=== PATIENT | male | born 1950 | race Caucasian/White ===

== ENCOUNTER 2019-10-17 14:28 | Inpatient (IN) | payer MEDICARE, OTHER ==
[~2019-10-17] VITALS: Ht 172.7 cm; Wt 60.5 kg
[~2019-10-17 14:28] MED LIST: CHOL10002 PO; FOLI-43 PO; FURO40TA4 PO; ISOS30TA6 PO; LACT10SO57 PO; PANT40TA4 PO; POTA10TA19 PO; SPIR25TA5 PO; THI100T PO; VIT1CAPS46 PO
[2019-10-17 15:21] LABS: BASOPHILS # (AUTO) 0.1 X10'3 (0-0.2); BASOPHILS % (AUTO) 1.1 % (0-1); EOSINOPHILS # (AUTO) 0.2 X10'3 (0-0.9); EOSINOPHILS % (AUTO) 4.9 % (0-6); HEMATOCRIT 30.4 % (42.0-52.0); HEMOGLOBIN 10.3 g/dl (14.0-17.9); LYMPHOCYTES # (AUTO) 1.4 X10'3 (1.1-4.8); LYMPHOCYTES % (AUTO) 27.3 % (21-51); MEAN CORPUSCULAR HEMOGLOBIN 34.9 PG (27.0-31.0); MEAN CORPUSCULAR HGB CONC 33.9 g/dL (33.0-36.5); MEAN PLATELET VOLUME 9.1 FL (7.4-10.4); MONOCYTES # (AUTO) 0.8 X10'3 (0-0.9); MONOCYTES % (AUTO) 14.6 % (2-12); NEUTROPHILS # (AUTO) 2.7 X10'3 (1.8-7.7); NEUTROPHILS % (AUTO) 52.1 % (42-75); PLATELET COUNT 74 X10'3 (140-440); RED BLOOD COUNT 2.95 X10'6 (4.70-6.10); RED CELL DISTRIBUTION WIDTH 18.7 % (11.5-14.5); WHITE BLOOD COUNT 5.2 X10'3 (4.5-11.0)
[2019-10-17 15:48] LABS: ALANINE AMINOTRANSFERASE 20 U/L (12-78); ALBUMIN 1.8 G/DL (3.4-5.0); ALBUMIN/GLOBULIN RATIO 0.4 (1.1-1.5); ALKALINE PHOSPHATASE 148 IU/L (46-116); ANION GAP 4 (8-16); ASPARTATE AMINO TRANSFERASE 53 U/L (10-37); BILIRUBIN,TOTAL 2.1 MG/DL (0.1-1.0); CALCIUM 7.8 MG/DL (8.5-10.1); CHLORIDE 104 MMOL/L (99-107); GLUCOSE 110 MG/DL (70-104); POTASSIUM 4.3 MMOL/L (3.5-5.1); SODIUM 135 MMOL/L (135-145); TOTAL CARBON DIOXIDE 26.8 MMOL/L (24-32); TOTAL PROTEIN 6.4 G/DL (6.4-8.2)
[2019-10-17 15:56] LABS: ANISOCYTOSIS 2+; PLATELET ESTIMATE DECREASED; TOTAL CELLS COUNTED 100
[2019-10-17 16:05] LABS: BLOOD UREA NITROGEN 8 MG/DL (7-18); CREATININE 1.68 MG/DL (0.60-1.10); eGFR 40 ML/MIN
[2019-10-17 16:06] LABS: BUN/CREATININE RATIO 4.8 (5.4-32.0)
[2019-10-17 16:09] LABS: POLYCHROMASIA FEW
[2019-10-17] MEDS ORDERED: furosemide 10 MG/1 ML 10ml inj IV ONE (16:45)
[2019-10-17] MEDS ORDERED: diltiazem 5mg/ml 5ml inj. IV ONE (16:55)
[2019-10-17] MEDS ORDERED: potassium Cl 20 mEq SR tablet PO STA (16:55)
--- NOTE | 2019-10-17 17:18 | NUR ---
US tech at bedside for study as ordered.
[2019-10-17 17:27] LABS: PARTIAL THROMBOPLASTIN TIME 37 SECONDS (22-32)
[2019-10-17] MEDS ORDERED: BETA1TAB19 PO (17:46)
[2019-10-17] MEDS ORDERED: ATOR20TA66 PO (17:46)
[2019-10-17] MEDS ORDERED: PROP10TA10 PO (17:46)
[2019-10-17] MEDS ORDERED: DIPH25CA83 PO (17:46)
[2019-10-17] MEDS ORDERED: acetaminophen 325mg tablet PO PRN (18:05)
[2019-10-17] MEDS ORDERED: ondansetron/PF 4mg/2ml inj IV PRN (18:05)
[2019-10-17] MEDS ORDERED: magnesium Cl slow-release 64mg tablet PO PRN (18:05)
[2019-10-17] MEDS ORDERED: potassium CL 10mEq/100ml bag 100 ML IV PRN ×2 (18:05)
[2019-10-17] MEDS ORDERED: magnesium 2GM in 50ml NS 50 ML IV PRN (18:05)
[2019-10-17] MEDS ORDERED: potassium Cl 20 mEq SR tablet PO PRN ×2 (18:05)
[2019-10-17] MEDS ORDERED: magnesium 4gm in 100ml NS 100 ML IV PRN (18:05)
--- NOTE | 2019-10-17 18:45 | NUR ---
Patient in room ED 15. I have received report from Yulia GAMBLE and had the opportunity to ask questions and assume patient care.
[2019-10-17 19:00] VITALS: BP 158/104
[2019-10-17] MEDS ORDERED: FLU VACC QS2019-20 36MOS UP/PF 60 MCG/0.5 ML SYRINGE IMVAC ONE (20:00)
[2019-10-17] MEDS: K and/or MAG REPLACEMENT MC SCH (20:03)
[2019-10-17] MEDS ORDERED: diphenhydrAMINE 25mg capsule PO SCH (21:00)
[2019-10-17 22:00] VITALS: BP 107/66
[2019-10-18 02:00] VITALS: BP 127/82
[2019-10-18 03:21] LABS: BASOPHILS % (AUTO) 0.9 % (0-1); EOSINOPHILS # (AUTO) 0.2 X10'3 (0-0.9); HEMATOCRIT 28.2 % (42.0-52.0); HEMOGLOBIN 9.5 g/dl (14.0-17.9); LYMPHOCYTES # (AUTO) 1.4 X10'3 (1.1-4.8); LYMPHOCYTES % (AUTO) 31.2 % (21-51); MEAN CORPUSCULAR HEMOGLOBIN 34.7 PG (27.0-31.0); MEAN CORPUSCULAR HGB CONC 33.9 g/dL (33.0-36.5); MEAN CORPUSCULAR VOLUME 102.4 FL (78-98); MEAN PLATELET VOLUME 9.2 FL (7.4-10.4); MONOCYTES # (AUTO) 0.7 X10'3 (0-0.9); MONOCYTES % (AUTO) 14.5 % (2-12); NEUTROPHILS # (AUTO) 2.2 X10'3 (1.8-7.7); NEUTROPHILS % (AUTO) 48.4 % (42-75); PLATELET COUNT 61 X10'3 (140-440); RED BLOOD COUNT 2.75 X10'6 (4.70-6.10); RED CELL DISTRIBUTION WIDTH 18.8 % (11.5-14.5); WHITE BLOOD COUNT 4.6 X10'3 (4.5-11.0)
[2019-10-18 03:36] LABS: ALBUMIN 1.5 G/DL (3.4-5.0); ANION GAP 5 (8-16); BLOOD UREA NITROGEN 9 MG/DL (7-18); BUN/CREATININE RATIO 5.8 (5.4-32.0); CALCIUM 7.8 MG/DL (8.5-10.1); CHLORIDE 107 MMOL/L (99-107); CREATININE 1.54 MG/DL (0.60-1.10); GLUCOSE 98 MG/DL (70-104); MAGNESIUM 1.4 MG/DL (1.5-2.4); POTASSIUM 4.1 MMOL/L (3.5-5.1); SODIUM 137 MMOL/L (135-145); TOTAL CARBON DIOXIDE 25.5 MMOL/L (24-32); eGFR 45 ML/MIN
[2019-10-18 04:33] LABS: TOTAL CELLS COUNTED 100
[2019-10-18 04:34] LABS: ANISOCYTOSIS 2+; PLATELET ESTIMATE DECREASED; POLYCHROMASIA FEW; SMUDGE CELLS 1+
[2019-10-18 06:00] VITALS: BP 111/79
--- NOTE | 2019-10-18 06:21 | NUR ---
Problems reprioritized. Patient report given, questions answered & plan of care reviewed with Brayden GAMBLE.
--- NOTE | 2019-10-18 06:29 | NUR ---
Patient in room PCU 3013. I have received report from Aiden GAMBLE and had the opportunity to ask questions and assume patient care.
[2019-10-18] MEDS ORDERED: pantoprazole 40mg Tablet.DR PO SCH (08:00)
[2019-10-18] MEDS ORDERED: folic acid 1mg tablet PO SCH (08:00)
[2019-10-18] MEDS ORDERED: furosemide 40mg tablet PO SCH (08:00)
[2019-10-18] MEDS ORDERED: lactulose 20gm/30ml cup PO SCH (08:00)
[2019-10-18] MEDS ORDERED: propranolol 10mg tablet PO SCH (08:00)
[2019-10-18] MEDS ORDERED: potassium chloride 10mEq ER tablet PO SCH (08:00)
[2019-10-18] MEDS ORDERED: thiamine 100mg tablet PO SCH (08:00)
[2019-10-18] MEDS: K and/or MAG REPLACEMENT MC SCH (08:00)
[2019-10-18] MEDS ORDERED: spironolactone 25 MG tablet PO SCH (08:00)
[2019-10-18] MEDS ORDERED: beta-carotene(A) w/C & E + minerals tab PO SCH (08:00)
[2019-10-18] MEDS ORDERED: atorvastatin 20mg tablet PO SCH (08:00)
[2019-10-18] MEDS ORDERED: FLU VACC QS2019-20 36MOS UP/PF 60 MCG/0.5 ML SYRINGE IMVAC ONE (10:00)
[2019-10-18] MEDS ORDERED: PROP10TA10 PO (10:32)
[2019-10-18] MEDS ORDERED: FURO40TA4 PO (10:40)
--- NOTE | 2019-10-18 12:16 | NUR ---
patient is stable for discharge per md orders, discharge instructions reviewed w/ pt all questions answered, new medication prescriptions were discussed w/ pt [facility], pt will be discharge to home @ 1150, PIV removed intact and dry pressure dressing in place, tele monitor returned, wheeled down to lobby with hospital staff to private vehicle, all belongings with pt at time of discharge
== END 2019-10-18 11:50 | disposition home or self-care (01) | DRG 308 ==
LOC: ER 14:29 → ED HOLD 18:05 → UNDOADMIN 18:49 → EDBEDREQ 18:55 → PCU 3S 19:20 → ED HOLD 19:20 → UNDODISIN 10-18 11:50
PROVIDERS: ADMIT Internal Medicine; ATTEND Internal Medicine
DX: I48.91 Unspecified atrial fibrillation (principal); I50.33 Acute on chronic diastolic (congestive) heart failure; I25.10 Atherosclerotic heart disease of native coronary artery without angina pectoris; I11.0 Hypertensive heart disease with heart failure; B18.2 Chronic viral hepatitis C; E78.5 Hyperlipidemia, unspecified; K21.9 Gastro-esophageal reflux disease without esophagitis; K70.30 Alcoholic cirrhosis of liver without ascites; Z28.21 Immunization not carried out because of patient refusal; I25.2 Old myocardial infarction
CPT/HCPCS: 36415; 71045; 80048; 80053; 83735; 83880; 84484; 85025; 85610; 85730; 87081; 93005; 93306; 99285; G0378; J1940; J3490; Q0163; Q2037

== ENCOUNTER 2019-12-24 14:34 | Emergency (ER) | payer OTHER, MEDICARE ==
[~2019-12-24] VITALS: Ht 172.7 cm; Wt 150.0 kg
[~2019-12-24 14:34] MED LIST changes: +ATOR20TA66 PO; +BETA1TAB19 PO; -CHOL10002 PO; +DIPH25CA83 PO; -ISOS30TA6 PO; +PROP10TA10 PO; -VIT1CAPS46 PO
--- NOTE | 2019-12-24 15:33 | NUR ---
Pt able to get himself from BSC back to bed. Pt did need a little help getting his legs up in bed.
--- NOTE | 2019-12-24 16:47 | NUR ---
Gave pt a urinal to obtain a urine sample. Pt states that he is not able to right now, but he will when he is able to.
[2019-12-24 17:11] LABS: BASOPHILS % (AUTO) 0.4 % (0-1); EOSINOPHILS # (AUTO) 0.1 X10'3 (0-0.9); EOSINOPHILS % (AUTO) 2.5 % (0-6); HEMATOCRIT 28.9 % (42.0-52.0); HEMOGLOBIN 9.6 g/dl (14.0-17.9); LYMPHOCYTES # (AUTO) 1.2 X10'3 (1.1-4.8); LYMPHOCYTES % (AUTO) 22.8 % (21-51); MEAN CORPUSCULAR HEMOGLOBIN 34.6 PG (27.0-31.0); MEAN CORPUSCULAR HGB CONC 33.1 g/dL (33.0-36.5); MEAN CORPUSCULAR VOLUME 104.5 FL (78-98); MEAN PLATELET VOLUME 9.6 FL (7.4-10.4); MONOCYTES # (AUTO) 0.9 X10'3 (0-0.9); MONOCYTES % (AUTO) 18.1 % (2-12); NEUTROPHILS # (AUTO) 2.9 X10'3 (1.8-7.7); NEUTROPHILS % (AUTO) 56.2 % (42-75); RED BLOOD COUNT 2.77 X10'6 (4.70-6.10); RED CELL DISTRIBUTION WIDTH 19.5 % (11.5-14.5); WHITE BLOOD COUNT 5.2 X10'3 (4.5-11.0)
[2019-12-24 17:21] LABS: ALANINE AMINOTRANSFERASE 16 U/L (12-78); ALBUMIN 1.7 G/DL (3.4-5.0); ALBUMIN/GLOBULIN RATIO 0.4 (1.1-1.5); ALKALINE PHOSPHATASE 105 IU/L (46-116); ANION GAP 5 (8-16); ASPARTATE AMINO TRANSFERASE 50 U/L (10-37); BILIRUBIN,TOTAL 2.1 MG/DL (0.1-1.0); BLOOD UREA NITROGEN 14 MG/DL (7-18); BUN/CREATININE RATIO 8.3 (5.4-32.0); CALCIUM 7.6 MG/DL (8.5-10.1); CHLORIDE 103 MMOL/L (99-107); CREATININE 1.69 MG/DL (0.60-1.10); GLUCOSE 115 MG/DL (70-104); LIPASE 301 U/L (73-393); POTASSIUM 3.6 MMOL/L (3.5-5.1); SODIUM 134 MMOL/L (135-145); TOTAL CARBON DIOXIDE 26.3 MMOL/L (24-32); TOTAL PROTEIN 5.6 G/DL (6.4-8.2); eGFR 40 ML/MIN
--- NOTE | 2019-12-24 17:32 | NUR ---
Pt gave permission to give his , Brandy bergeron. Her number is [phone].
[2019-12-24 17:40] LABS: PLATELET COUNT 40 X10'3 (140-440)
[2019-12-24 18:03] LABS: TOTAL CELLS COUNTED 100
[2019-12-24 18:04] LABS: ANISOCYTOSIS 2+; PLATELET ESTIMATE DECREASED; POLYCHROMASIA FEW
[2019-12-24 18:05] LABS: SMUDGE CELLS 2+
[2019-12-24 18:41] VITALS: BP 122/80
== END 2019-12-24 18:40 | disposition home or self-care (01) ==
LOC: ER 14:35
DX: D69.6 Thrombocytopenia, unspecified (principal); N18.9 Chronic kidney disease, unspecified; K74.60 Unspecified cirrhosis of liver; M54.5 Low back pain; I10 Essential (primary) hypertension; I25.2 Old myocardial infarction; F17.200 Nicotine dependence, unspecified, uncomplicated; F10.10 Alcohol abuse, uncomplicated; Z86.19 Personal history of other infectious and parasitic diseases; Z98.890 Other specified postprocedural states; Z79.899 Other long term (current) drug therapy
CPT/HCPCS: 36415; 71045; 72100; 80053; 83690; 85025; 99285

== ENCOUNTER 2020-01-15 12:09 | Inpatient (IN) | payer OTHER, MEDICARE ==
[~2020-01-15] VITALS: Ht 170.2 cm; Wt 79.2 kg
[2020-01-15] MEDS ORDERED: diltiazem-D5W 125mg/125ml 125 ML IV ONE (13:04)
[2020-01-15 13:05] LABS: BASOPHILS # (AUTO) 0.1 X10'3 (0-0.2); BASOPHILS % (AUTO) 1.1 % (0-1); EOSINOPHILS # (AUTO) 0.3 X10'3 (0-0.9); EOSINOPHILS % (AUTO) 5.5 % (0-6); HEMATOCRIT 28.8 % (42.0-52.0); HEMOGLOBIN 9.5 g/dl (14.0-17.9); LYMPHOCYTES # (AUTO) 1.6 X10'3 (1.1-4.8); MEAN CORPUSCULAR HEMOGLOBIN 34.7 PG (27.0-31.0); MEAN CORPUSCULAR VOLUME 105.1 FL (78-98); MEAN PLATELET VOLUME 8.8 FL (7.4-10.4); MONOCYTES # (AUTO) 0.5 X10'3 (0-0.9); MONOCYTES % (AUTO) 11.3 % (2-12); NEUTROPHILS # (AUTO) 2.4 X10'3 (1.8-7.7); NEUTROPHILS % (AUTO) 50.1 % (42-75); PLATELET COUNT 66 X10'3 (140-440); RED BLOOD COUNT 2.74 X10'6 (4.70-6.10); RED CELL DISTRIBUTION WIDTH 19.4 % (11.5-14.5); WHITE BLOOD COUNT 4.9 X10'3 (4.5-11.0)
[2020-01-15] MEDS ORDERED: diltiazem 5mg/ml 5ml inj. IV ONE (13:05)
[2020-01-15] MEDS ORDERED: diltiazem-NS 100mg/100ml 100 ML IV ONE (13:10)
[2020-01-15 13:23] LABS: ALANINE AMINOTRANSFERASE 18 U/L (12-78); ALBUMIN/GLOBULIN RATIO 0.4 (1.1-1.5); ALKALINE PHOSPHATASE 94 IU/L (46-116); ANION GAP 7 (8-16); ASPARTATE AMINO TRANSFERASE 55 U/L (10-37); BILIRUBIN,TOTAL 2.2 MG/DL (0.1-1.0); BLOOD UREA NITROGEN 22 MG/DL (7-18); BUN/CREATININE RATIO 13.8 (5.4-32.0); CALCIUM 8.2 MG/DL (8.5-10.1); CHLORIDE 106 MMOL/L (99-107); GLUCOSE 97 MG/DL (70-104); POTASSIUM 4.1 MMOL/L (3.5-5.1); SODIUM 138 MMOL/L (135-145); TOTAL CARBON DIOXIDE 24.9 MMOL/L (24-32); TOTAL PROTEIN 6.5 G/DL (6.4-8.2); eGFR 43 ML/MIN
[2020-01-15] MEDS ORDERED: FURO40TA4 PO (13:57)
[2020-01-15] MEDS ORDERED: PRAV10TA39 PO (13:57)
[2020-01-15] MEDS ORDERED: ASPI-611 PO (13:57)
[2020-01-15] MEDS ORDERED: CARV-50 PO (13:57)
[2020-01-15] MEDS ORDERED: ISOS30TA6 PO (13:57)
[2020-01-15] MEDS ORDERED: LACT10SO PO (13:57)
[2020-01-15] MEDS ORDERED: LIDO700A32 TOP (13:57)
--- NOTE | 2020-01-15 18:11 | NUR ---
SPOKE WITH DR. ROY REGARDING PT ADMIT ORDERS. STATED SHE WOULD FINISH ENTERING ADMIT ORDERS.
[2020-01-15] MEDS ORDERED: magnesium 4gm in 100ml NS 100 ML IV PRN (18:15)
[2020-01-15] MEDS ORDERED: potassium CL 10mEq/100ml bag 100 ML IV PRN ×2 (18:15)
[2020-01-15] MEDS ORDERED: ondansetron/PF 4mg/2ml inj IV PRN (18:15)
[2020-01-15] MEDS ORDERED: magnesium Cl slow-release 64mg tablet PO PRN (18:15)
[2020-01-15] MEDS ORDERED: magnesium 2GM in 50ml NS 50 ML IV PRN (18:15)
[2020-01-15] MEDS ORDERED: potassium Cl 20 mEq SR tablet PO PRN ×2 (18:15)
[2020-01-15] MEDS: K and/or MAG REPLACEMENT MC SCH (20:00)
--- NOTE | 2020-01-15 20:02 | NUR ---
I have received report from MAVIS Kwan (ED) and had the opportunity to ask questions. Pt will be transferred to 0456F.
--- NOTE | 2020-01-15 20:08 | NUR ---
Pt arrived at the unit via gurney with pt's belongings. Ambulated from 3012 door to bed with minimum assist. Transfer tolerated, no signs of distress noted. Placed on mobile monitor. 2 - RN skin assessment and nasal swab MRSA culture specimen collected.
[2020-01-15 20:15] VITALS: BP 164/99
[2020-01-15] MEDS: pantoprazole 40mg Tablet.DR PO SCH (20:51)
[2020-01-15] MEDS: carVEDilol 12.5mg tablet PO SCH (20:51)
[2020-01-15] MEDS: furosemide 40mg tablet PO SCH (20:51)
[2020-01-15] MEDS: spironolactone 25 MG tablet PO SCH (20:52)
[2020-01-15] MEDS: lactulose 20gm/30ml cup PO SCH (20:52)
[2020-01-15 20:55] VITALS: BP 152/87
[2020-01-15 22:00] VITALS: BP 140/101
[2020-01-16 01:04] LABS: BASOPHILS # (AUTO) 0.1 X10'3 (0-0.2); BASOPHILS % (AUTO) 1.2 % (0-1); EOSINOPHILS # (AUTO) 0.1 X10'3 (0-0.9); EOSINOPHILS % (AUTO) 2.9 % (0-6); HEMATOCRIT 28.9 % (42.0-52.0); HEMOGLOBIN 9.7 g/dl (14.0-17.9); LYMPHOCYTES # (AUTO) 1.2 X10'3 (1.1-4.8); LYMPHOCYTES % (AUTO) 25.5 % (21-51); MEAN CORPUSCULAR HEMOGLOBIN 35.3 PG (27.0-31.0); MEAN CORPUSCULAR HGB CONC 33.5 g/dL (33.0-36.5); MEAN CORPUSCULAR VOLUME 105.4 FL (78-98); MEAN PLATELET VOLUME 8.8 FL (7.4-10.4); MONOCYTES # (AUTO) 0.5 X10'3 (0-0.9); MONOCYTES % (AUTO) 10.9 % (2-12); NEUTROPHILS # (AUTO) 2.7 X10'3 (1.8-7.7); NEUTROPHILS % (AUTO) 59.5 % (42-75); PLATELET COUNT 60 X10'3 (140-440); RED BLOOD COUNT 2.74 X10'6 (4.70-6.10); RED CELL DISTRIBUTION WIDTH 19.4 % (11.5-14.5); WHITE BLOOD COUNT 4.5 X10'3 (4.5-11.0)
[2020-01-16 01:12] LABS: ANISOCYTOSIS 2+; MICROCYTOSIS 1+; PLATELET ESTIMATE DECREASED
[2020-01-16 01:23] LABS: ALBUMIN 1.8 G/DL (3.4-5.0); ANION GAP 6 (8-16); BLOOD UREA NITROGEN 22 MG/DL (7-18); BUN/CREATININE RATIO 14.8 (5.4-32.0); CALCIUM 8.3 MG/DL (8.5-10.1); CHLORIDE 107 MMOL/L (99-107); CREATININE 1.49 MG/DL (0.60-1.10); GLUCOSE 109 MG/DL (70-104); MAGNESIUM 1.6 MG/DL (1.5-2.4); POTASSIUM 4.2 MMOL/L (3.5-5.1); SODIUM 139 MMOL/L (135-145); TOTAL CARBON DIOXIDE 26.5 MMOL/L (24-32); eGFR 46 ML/MIN
[2020-01-16 02:00] VITALS: BP 126/75
[2020-01-16 04:00] VITALS: BP 120/82
--- NOTE | 2020-01-16 05:24 | NUR ---
Paged Dr. Pierre. PAGER ID: [phone] MESSAGE: This is MAVIS Prieto. Pt in Rm 3012B, Ethan Machado Dx Afib with RVR. Pt is on Diltiazem drip, but it was a one time order. Do you want to continue the Cardizem drip. Pt is still in Afib.. Thanks!
[2020-01-16] MEDS ORDERED: diltiazem-NS 100mg/100ml 100 ML IV ONE (05:35)
--- NOTE | 2020-01-16 06:17 | NUR ---
Problems reprioritized. Patient report given, questions answered & plan of care reviewed with MAVIS Brush.
[2020-01-16 08:10] VITALS: BP 127/77
[2020-01-16] MEDS: thiamine 100mg tablet PO SCH (10:29)
[2020-01-16] MEDS: carVEDilol 12.5mg tablet PO SCH ×2 (10:29→21:01)
[2020-01-16] MEDS: furosemide 40mg tablet PO SCH ×3 (10:29→21:02)
[2020-01-16] MEDS: aspirin 81mg tablet.DR PO SCH (10:29)
[2020-01-16] MEDS: atorvastatin 10mg tablet PO SCH (10:29)
[2020-01-16] MEDS: lactulose 20gm/30ml cup PO SCH ×3 (10:29→21:03)
[2020-01-16] MEDS: pantoprazole 40mg Tablet.DR PO SCH ×2 (10:29→21:01)
[2020-01-16] MEDS: spironolactone 25 MG tablet PO SCH ×2 (10:29→21:01)
[2020-01-16] MEDS: isosorbide mononitrate 30mg tab.SR.24H PO SCH (10:29)
[2020-01-16] MEDS: folic acid 1mg tablet PO SCH (10:29)
[2020-01-16] MEDS: K and/or MAG REPLACEMENT MC SCH ×2 (10:30→20:00)
--- NOTE | 2020-01-16 11:25 | NUR ---
Wean pt off cardizem gtt after starting PO cardizem. Start at 30mg Q6H. If heart rate increased increase cardizem to 60mg PO Q6H per
[2020-01-16 12:16] VITALS: BP 118/59
[2020-01-16] MEDS: diltiazem 30mg tablet PO SCH ×2 (13:51→21:02)
[2020-01-16 18:00] VITALS: BP 104/63
--- NOTE | 2020-01-16 18:25 | NUR ---
Problems reprioritized. Patient report given, questions answered & plan of care reviewed with Merlin RN.
--- NOTE | 2020-01-16 18:30 | NUR ---
Patient in room PCU 3012. I have received report from Gonsalo GAMBLE and had the opportunity to ask questions and assume patient care.
[2020-01-17 02:00] VITALS: BP 99/63
[2020-01-17] MEDS: diltiazem 30mg tablet PO SCH ×4 (03:31→20:43)
[2020-01-17 06:00] VITALS: BP 97/57
[2020-01-17 06:13] LABS: BASOPHILS % (AUTO) 0.5 % (0-1); EOSINOPHILS # (AUTO) 0.1 X10'3 (0-0.9); EOSINOPHILS % (AUTO) 2.4 % (0-6); HEMATOCRIT 24.8 % (42.0-52.0); HEMOGLOBIN 8.2 g/dl (14.0-17.9); LYMPHOCYTES # (AUTO) 0.6 X10'3 (1.1-4.8); MEAN CORPUSCULAR HEMOGLOBIN 35.3 PG (27.0-31.0); MEAN CORPUSCULAR VOLUME 106.9 FL (78-98); MEAN PLATELET VOLUME 9.3 FL (7.4-10.4); MONOCYTES # (AUTO) 0.5 X10'3 (0-0.9); MONOCYTES % (AUTO) 11.9 % (2-12); NEUTROPHILS % (AUTO) 71.2 % (42-75); RED BLOOD COUNT 2.32 X10'6 (4.70-6.10); RED CELL DISTRIBUTION WIDTH 19.7 % (11.5-14.5); WHITE BLOOD COUNT 4.2 X10'3 (4.5-11.0)
[2020-01-17 06:17] LABS: PLATELET COUNT 49 X10'3 (140-440)
--- NOTE | 2020-01-17 06:22 | NUR ---
Patient in room PCU 3012. I have received report from Theo GAMBLE and had the opportunity to ask questions and assume patient care.
[2020-01-17 06:23] LABS: ALBUMIN 1.7 G/DL (3.4-5.0); ANION GAP 6 (8-16); BLOOD UREA NITROGEN 29 MG/DL (7-18); BUN/CREATININE RATIO 11.3 (5.4-32.0); CALCIUM 8.5 MG/DL (8.5-10.1); CHLORIDE 108 MMOL/L (99-107); CREATININE 2.57 MG/DL (0.60-1.10); GLUCOSE 144 MG/DL (70-104); MAGNESIUM 1.7 MG/DL (1.5-2.4); POTASSIUM 4.5 MMOL/L (3.5-5.1); SODIUM 141 MMOL/L (135-145); TOTAL CARBON DIOXIDE 27.1 MMOL/L (24-32); eGFR 25 ML/MIN
--- NOTE | 2020-01-17 06:27 | NUR ---
NOTIFIED PAGER ID: [phone] MESSAGE: [id number] Carter ROBLES Critical value PLT 49 FYI
--- NOTE | 2020-01-17 06:27 | NUR ---
Problems reprioritized. Patient report given, questions answered & plan of care reviewed with Brayden GAMBLE.
[2020-01-17 06:52] LABS: ANISOCYTOSIS 2+; PLATELET ESTIMATE DECREASED; POLYCHROMASIA 1+
[2020-01-17] MEDS: K and/or MAG REPLACEMENT MC SCH ×2 (08:00→20:35)
[2020-01-17] MEDS: folic acid 1mg tablet PO SCH (08:27)
[2020-01-17] MEDS: isosorbide mononitrate 30mg tab.SR.24H PO SCH (08:27)
[2020-01-17] MEDS: lactulose 20gm/30ml cup PO SCH ×3 (08:27→20:43)
[2020-01-17] MEDS: carVEDilol 12.5mg tablet PO SCH ×2 (08:28→20:43)
[2020-01-17] MEDS: thiamine 100mg tablet PO SCH (08:28)
[2020-01-17] MEDS: aspirin 81mg tablet.DR PO SCH (08:28)
[2020-01-17] MEDS: pantoprazole 40mg Tablet.DR PO SCH ×2 (08:28→20:43)
[2020-01-17] MEDS: furosemide 40mg tablet PO SCH (08:28)
[2020-01-17] MEDS: spironolactone 25 MG tablet PO SCH ×2 (08:28→20:43)
[2020-01-17] MEDS: atorvastatin 10mg tablet PO SCH (08:28)
[2020-01-17] MEDS: levalbuterol 0.63mg/3ml nebule IH SCH ×3 (13:35→20:12)
--- NOTE | 2020-01-17 13:38 | NUR ---
discuss current cxr with dr. Dial, received orders for xopenex q6h neb via rt, rocephen 1g IV qd, zithromax 500mg qd and to get procal and lactic acid labs per dr. dial.
[2020-01-17] MEDS: azithromycin 250mg tablet PO SCH (14:49)
[2020-01-17] MEDS: CefTRIAXone/D5W-Rocephin 1gm 50 ML IV SCH (14:50)
[2020-01-17 15:00] VITALS: BP 89/62
--- NOTE | 2020-01-17 16:13 | NUR ---
Nutrition consult re: liver cirrhosis, low albumin and chronic BLE edema. Pt eating average 50% of past five meals, admitted yesterday. First meals 25% and is improving to 50-75%. Has heart healthy diet. BLE 2+ mild pitting edema. No recent weight loss. MCV 106.9 possible r/t folic acid or vitamin B12 deficiency, ALB 1.7. He is receiving folic acid, thiamine, may also benefit from vitamin B12 supplementation, notified MD. Will continue to follow and monitor PO intake and need for ONS. Addendum: 01/17/20 at [address] Amended: Links added.
[2020-01-17 18:00] VITALS: BP 93/58
--- NOTE | 2020-01-17 18:14 | NUR ---
Patient in room PCU 3012. I have received report from Brayden GAMBLE and had the opportunity to ask questions and assume patient care.
--- NOTE | 2020-01-17 18:18 | NUR ---
Problems reprioritized. Patient report given, questions answered & plan of care reviewed with Aiden GAMBLE.
--- NOTE | 2020-01-17 21:50 | NUR ---
Page Sent PAGER ID: [phone] MESSAGE: pt in [id number] Sudhir Machado 69 male here for A. Fib RVR, pt was found sitting on floor, per pt he fell on his backside, unwitnessed standing level fall, pt denies hitting his head, no injury to pt , skin intact.- Aiden [id number]
--- NOTE | 2020-01-17 21:51 | NUR ---
pt found by nursing staff sitting on the floor, per pt he fell, pt denies hitting head and other extremities, pt A&O x4, call light in reach, BSC next to bed. per pt he was trying to get to the BSC to have a BM and could not wait for help. Pt helped back to bed and re-educated about calling for help and use of call light, education accepted well by pt. Dr. Johnson notified.
[2020-01-17 22:00] VITALS: BP 104/59
[2020-01-18 02:00] VITALS: BP 103/62
[2020-01-18] MEDS: levalbuterol 0.63mg/3ml nebule IH SCH ×4 (02:33→20:55)
[2020-01-18] MEDS: diltiazem 30mg tablet PO SCH ×2 (02:53→08:42)
[2020-01-18 06:00] VITALS: BP 96/69
--- NOTE | 2020-01-18 06:33 | NUR ---
Problems reprioritized. Patient report given, questions answered & plan of care reviewed with Aniya GAMBLE.
--- NOTE | 2020-01-18 06:34 | NUR ---
Patient in room PCU 3012. I have received report from Aiden GAMBLE and had the opportunity to ask questions and assume patient care.
[2020-01-18 06:48] LABS: EOSINOPHILS # (AUTO) 0.1 X10'3 (0-0.9); LYMPHOCYTES # (AUTO) 0.8 X10'3 (1.1-4.8); MEAN CORPUSCULAR HGB CONC 32.9 g/dL (33.0-36.5); MONOCYTES # (AUTO) 0.7 X10'3 (0-0.9); WHITE BLOOD COUNT 4.6 X10'3 (4.5-11.0)
[2020-01-18 06:50] LABS: BASOPHILS % (AUTO) 0.5 % (0-1); EOSINOPHILS % (AUTO) 2.4 % (0-6); HEMATOCRIT 24.5 % (42.0-52.0); LYMPHOCYTES % (AUTO) 17.7 % (21-51); MEAN CORPUSCULAR HEMOGLOBIN 35.5 PG (27.0-31.0); MEAN CORPUSCULAR VOLUME 107.9 FL (78-98); MEAN PLATELET VOLUME 9.1 FL (7.4-10.4); MONOCYTES % (AUTO) 14.7 % (2-12); NEUTROPHILS % (AUTO) 64.7 % (42-75); RED BLOOD COUNT 2.27 X10'6 (4.70-6.10); RED CELL DISTRIBUTION WIDTH 19.9 % (11.5-14.5)
[2020-01-18 06:58] LABS: ALBUMIN 1.8 G/DL (3.4-5.0); ANION GAP 7 (8-16); BLOOD UREA NITROGEN 35 MG/DL (7-18); BUN/CREATININE RATIO 10.3 (5.4-32.0); CALCIUM 9.2 MG/DL (8.5-10.1); CHLORIDE 108 MMOL/L (99-107); GLUCOSE 127 MG/DL (70-104); POTASSIUM 4.7 MMOL/L (3.5-5.1); SODIUM 142 MMOL/L (135-145); TOTAL CARBON DIOXIDE 27.3 MMOL/L (24-32); eGFR 18 ML/MIN
[2020-01-18 07:20] LABS: PLATELET COUNT 47 X10'3 (140-440)
--- NOTE | 2020-01-18 07:28 | NUR ---
Page to Heron PAGER ID: [phone] MESSAGE: Aniya NAYLA 2601. Patient Carter 3012B. Critical Platelet 47
[2020-01-18 07:32] LABS: PLATELET ESTIMATE DECREASED
[2020-01-18 07:33] LABS: ANISOCYTOSIS 2+; HYPOCHROMASIA 1+; POLYCHROMASIA 1+
[2020-01-18 07:34] LABS: STOMATOCYTES 1+
[2020-01-18] MEDS: carVEDilol 12.5mg tablet PO SCH (08:00)
[2020-01-18] MEDS: K and/or MAG REPLACEMENT MC SCH ×2 (08:40→19:03)
[2020-01-18] MEDS: lactulose 20gm/30ml cup PO SCH ×3 (08:40→20:35)
[2020-01-18] MEDS: isosorbide mononitrate 30mg tab.SR.24H PO SCH (08:41)
[2020-01-18] MEDS: aspirin 81mg tablet.DR PO SCH (08:41)
[2020-01-18] MEDS: CefTRIAXone/D5W-Rocephin 1gm 50 ML IV SCH (08:41)
[2020-01-18] MEDS: pantoprazole 40mg Tablet.DR PO SCH (08:42)
[2020-01-18] MEDS: atorvastatin 10mg tablet PO SCH (08:42)
[2020-01-18] MEDS: spironolactone 25 MG tablet PO SCH (08:42)
[2020-01-18] MEDS: azithromycin 250mg tablet PO SCH (08:42)
[2020-01-18] MEDS: thiamine 100mg tablet PO SCH (08:42)
[2020-01-18] MEDS: folic acid 1mg tablet PO SCH (08:42)
--- NOTE | 2020-01-18 09:49 | NUR ---
Patient in room PCU 3012. I have received report from MAVIS Kwan and had the opportunity to ask questions and assume patient care.
--- NOTE | 2020-01-18 10:26 | NUR ---
Problems reprioritized. Patient report given, questions answered & plan of care reviewed with Cecil RN. Patient stable at transfer of care.
[2020-01-18 11:00] VITALS: BP 100/76
[2020-01-18 15:00] VITALS: BP 92/55
[2020-01-18 18:00] VITALS: BP 98/53
[2020-01-18] MEDS: normal saline 1000ml 1,000 ML IV SCH (18:02)
--- NOTE | 2020-01-18 18:42 | NUR ---
Patient in room PCU 3012. I have received report from Cecil GAMBLE and had the opportunity to ask questions and assume patient care.
--- NOTE | 2020-01-18 18:48 | NUR ---
Problems reprioritized. Patient report given, questions answered & plan of care reviewed with MAVIS Mitchell and MAVIS Arango.
--- NOTE | 2020-01-18 18:56 | NUR ---
Patient in room PCU 3012. I have received report from Cecil GAMBLE and had the opportunity to ask questions and assume patient care.
[2020-01-18 22:00] VITALS: BP 114/69
[2020-01-19 02:00] VITALS: BP 116/72
[2020-01-19] MEDS: levalbuterol 0.63mg/3ml nebule IH SCH ×4 (02:40→20:54)
[2020-01-19 05:27] LABS: EOSINOPHILS # (AUTO) 0.2 X10'3 (0-0.9); HEMOGLOBIN 8.3 g/dl (14.0-17.9); MEAN CORPUSCULAR HEMOGLOBIN 35.5 PG (27.0-31.0); MEAN PLATELET VOLUME 8.9 FL (7.4-10.4); MONOCYTES # (AUTO) 0.8 X10'3 (0-0.9); WHITE BLOOD COUNT 5.4 X10'3 (4.5-11.0)
[2020-01-19 05:32] LABS: BASOPHILS % (AUTO) 0.5 % (0-1); EOSINOPHILS % (AUTO) 4.1 % (0-6); HEMATOCRIT 25.1 % (42.0-52.0); LYMPHOCYTES # (AUTO) 1.4 X10'3 (1.1-4.8); LYMPHOCYTES % (AUTO) 25.4 % (21-51); MEAN CORPUSCULAR VOLUME 107.6 FL (78-98); MONOCYTES % (AUTO) 14.8 % (2-12); NEUTROPHILS % (AUTO) 55.2 % (42-75); RED BLOOD COUNT 2.34 X10'6 (4.70-6.10); RED CELL DISTRIBUTION WIDTH 20.1 % (11.5-14.5)
[2020-01-19 05:36] LABS: PLATELET COUNT 49 X10'3 (140-440)
[2020-01-19 05:38] LABS: ALBUMIN 1.8 G/DL (3.4-5.0); ANION GAP 5 (8-16); BLOOD UREA NITROGEN 39 MG/DL (7-18); BUN/CREATININE RATIO 11.4 (5.4-32.0); CALCIUM 8.6 MG/DL (8.5-10.1); CHLORIDE 108 MMOL/L (99-107); CREATININE 3.41 MG/DL (0.60-1.10); GLUCOSE 106 MG/DL (70-104); MAGNESIUM 2.1 MG/DL (1.5-2.4); POTASSIUM 4.4 MMOL/L (3.5-5.1); SODIUM 141 MMOL/L (135-145); TOTAL CARBON DIOXIDE 27.6 MMOL/L (24-32); eGFR 18 ML/MIN
--- NOTE | 2020-01-19 05:40 | NUR ---
PAGER ID: [phone] MESSAGE: Patient Sudhir Machado Rm [id number] FYI patient had critical Plt of 49 however this is up from 47 yesterday. Thank you. Paula GAMBLE ext. [phone]
[2020-01-19] MEDS: normal saline 1000ml 1,000 ML IV SCH ×2 (05:54→22:59)
--- NOTE | 2020-01-19 06:17 | NUR ---
Problems reprioritized. Patient report given, questions answered & plan of care reviewed with Aniya GAMBLE.
--- NOTE | 2020-01-19 06:18 | NUR ---
Problems reprioritized. Patient report given, questions answered & plan of care reviewed with Aniya GAMBLE.
--- NOTE | 2020-01-19 06:38 | NUR ---
Patient in room PCU 3012. I have received report from Paula GAMBLE and had the opportunity to ask questions and assume patient care.
[2020-01-19 07:32] VITALS: BP 111/72
[2020-01-19] MEDS: CefTRIAXone/D5W-Rocephin 1gm 50 ML IV SCH (08:44)
[2020-01-19] MEDS: lactulose 20gm/30ml cup PO SCH ×3 (08:45→20:18)
[2020-01-19] MEDS: K and/or MAG REPLACEMENT MC SCH ×2 (08:45→19:35)
[2020-01-19] MEDS: folic acid 1mg tablet PO SCH (08:45)
[2020-01-19] MEDS: azithromycin 250mg tablet PO SCH (08:45)
[2020-01-19] MEDS: thiamine 100mg tablet PO SCH (08:45)
[2020-01-19] MEDS: atorvastatin 10mg tablet PO SCH (08:45)
[2020-01-19 09:31] LABS: NUCLEATED RED BLOOD CELLS 2 /100WBC (0-0); TOTAL CELLS COUNTED 100
[2020-01-19 09:32] LABS: ANISOCYTOSIS 2+; PLATELET ESTIMATE DECREASED; POLYCHROMASIA 1+; TOXIC VACUOLATION 1+
[2020-01-19 09:33] LABS: SMUDGE CELLS 1+
[2020-01-19 12:08] VITALS: BP 119/70
[2020-01-19] MEDS ORDERED: famotidine 20mg tablet PO ONE (14:35)
--- NOTE | 2020-01-19 15:10 | NUR ---
O2 Sat at rest on room air:_93__% If below 89%: Recovery O2 Sat at rest on _1.5__LPM:_98__%: via nasal cannula (mask/nasal cannula, etc..) No further documentation is necessary. If O2 Sat did not drop below 89% on room air,ambulate patient on room air. O2 Sat while ambulating on room air:_82__% Recovery O2 Sat while ambulating on __1.5_LPM:_97__% No further documentation is necessary. If patient does not drop below 89% while ambulating, he/she does not qualify for home O2.
[2020-01-19 16:18] VITALS: BP 125/85
[2020-01-19 18:00] VITALS: BP 110/70
--- NOTE | 2020-01-19 18:19 | NUR ---
Problems reprioritized. Patient report given, questions answered & plan of care reviewed with Paula GAMBLE and Conchita GAMBLE. Patient stable at transfer of care.
--- NOTE | 2020-01-19 18:28 | NUR ---
Patient in room PCU 3012. I have received report from Aniya GAMBLE and had the opportunity to ask questions and assume patient care.
--- NOTE | 2020-01-19 18:28 | NUR ---
Patient in room PCU 3012. I have received report from Aniya GAMBLE and had the opportunity to ask questions and assume patient care.
[2020-01-19] MEDS ORDERED: lactulose 20gm/30ml cup PO SCH (20:00)
[2020-01-19] MEDS: carVEDilol 3.125mg tablet PO SCH (20:16)
[2020-01-19] MEDS: famotidine 20mg tablet PO SCH (20:17)
[2020-01-19] MEDS: lactobacillus rhamnosus 10,000 MMU CELLS/CAPSULE PO SCH (20:17)
[2020-01-19 20:44] LABS: TOTAL PROTEIN,URINE RANDOM 29.1 MG/DL
[2020-01-19 20:47] LABS: SODIUM,URINE RANDOM < 15 MEQ/L
[2020-01-19 22:00] VITALS: BP_SYST 110; BP_SYST 120; BP_DIAS 70; BP_DIAS 74
[2020-01-20 02:00] VITALS: BP 129/74
[2020-01-20] MEDS: levalbuterol 0.63mg/3ml nebule IH SCH ×4 (03:33→21:18)
[2020-01-20 05:12] LABS: BASOPHILS % (AUTO) 0.4 % (0-1); EOSINOPHILS # (AUTO) 0.2 X10'3 (0-0.9); EOSINOPHILS % (AUTO) 3.8 % (0-6); HEMATOCRIT 26.3 % (42.0-52.0); HEMOGLOBIN 8.5 g/dl (14.0-17.9); LYMPHOCYTES # (AUTO) 1.2 X10'3 (1.1-4.8); LYMPHOCYTES % (AUTO) 22.8 % (21-51); MEAN CORPUSCULAR HEMOGLOBIN 35.2 PG (27.0-31.0); MEAN CORPUSCULAR HGB CONC 32.4 g/dL (33.0-36.5); MEAN CORPUSCULAR VOLUME 108.6 FL (78-98); MEAN PLATELET VOLUME 8.9 FL (7.4-10.4); MONOCYTES # (AUTO) 0.8 X10'3 (0-0.9); MONOCYTES % (AUTO) 15.9 % (2-12); NEUTROPHILS % (AUTO) 57.1 % (42-75); RED BLOOD COUNT 2.42 X10'6 (4.70-6.10); RED CELL DISTRIBUTION WIDTH 20.6 % (11.5-14.5); WHITE BLOOD COUNT 5.2 X10'3 (4.5-11.0)
[2020-01-20 05:14] LABS: ALBUMIN 1.8 G/DL (3.4-5.0); ANION GAP 4 (8-16); BLOOD UREA NITROGEN 34 MG/DL (7-18); BUN/CREATININE RATIO 12.7 (5.4-32.0); CALCIUM 8.6 MG/DL (8.5-10.1); CHLORIDE 110 MMOL/L (99-107); CREATININE 2.68 MG/DL (0.60-1.10); GLUCOSE 102 MG/DL (70-104); POTASSIUM 4.8 MMOL/L (3.5-5.1); SODIUM 142 MMOL/L (135-145); TOTAL CARBON DIOXIDE 27.7 MMOL/L (24-32); eGFR 24 ML/MIN
[2020-01-20 05:35] LABS: PLATELET COUNT 50 X10'3 (140-440)
[2020-01-20 06:00] VITALS: BP 123/73
--- NOTE | 2020-01-20 06:09 | NUR ---
Problems reprioritized. Patient report given, questions answered & plan of care reviewed with Calli GAMBLE.
--- NOTE | 2020-01-20 06:41 | NUR ---
Patient in room PCU 3012. I have received report from MAVIS Mitchell/MAVIS Arango and had the opportunity to ask questions and assume patient care.
[2020-01-20] MEDS: K and/or MAG REPLACEMENT MC SCH ×2 (08:00→19:21)
[2020-01-20 08:15] LABS: COMPLEMENT C3, SERUM 46 mg/dL (82-167); COMPLEMENT C4, SERUM 11 mg/dL (14-44)
[2020-01-20] MEDS: atorvastatin 10mg tablet PO SCH (08:48)
[2020-01-20] MEDS: famotidine 20mg tablet PO SCH ×2 (08:48→20:16)
[2020-01-20] MEDS: CefTRIAXone/D5W-Rocephin 1gm 50 ML IV SCH (08:48)
[2020-01-20] MEDS: lactobacillus rhamnosus 10,000 MMU CELLS/CAPSULE PO SCH ×2 (08:48→20:16)
[2020-01-20] MEDS: folic acid 1mg tablet PO SCH (08:48)
[2020-01-20] MEDS: lactulose 20gm/30ml cup PO SCH ×3 (08:48→20:17)
[2020-01-20] MEDS: carVEDilol 3.125mg tablet PO SCH ×2 (08:48→20:16)
[2020-01-20] MEDS: azithromycin 250mg tablet PO SCH (08:48)
[2020-01-20] MEDS: thiamine 100mg tablet PO SCH (08:48)
[2020-01-20 10:00] LABS: ANISOCYTOSIS 3+; NUCLEATED RED BLOOD CELLS 2 /100WBC (0-0); PLATELET ESTIMATE DECREASED; POLYCHROMASIA 2+; TOTAL CELLS COUNTED 100
[2020-01-20 10:01] LABS: HYPOCHROMASIA 1+; STOMATOCYTES 1+
[2020-01-20 11:00] VITALS: BP 118/84
--- NOTE | 2020-01-20 11:01 | NUR ---
Initial: Pt admit w/ thrombocytopenia, liver cirrhosis, WHITNEY, MCV 108.6 at this time. PO 75-100% heart healthy diet past 2 days up from initial 25% PO first 2 days of admit. Ensure high protein WS recommended for additional protein needs and fluctuating PO; MD notified. Pt receiving thiamin and folic acid as well as routine lactulose TID; ARLET d/w RN regarding B12 supplementation given MCV and hx if MD agreeable. [facility] 01/18. Will continue to monitor. Rec: 1. continue heart healthy diet 2. ensure high protein WS 3. B12 supplementation; MCV 108.6; consider MMA if MD agreeable to further determine B12 status 4. routine bowel care; lactulose TID per MD 5. weekly wts Addendum: 01/20/20 at [address] Amended: Links added.
[2020-01-20 15:00] VITALS: BP 138/87
[2020-01-20] MEDS ORDERED: lactose-reduced food (Ensure High Protein) 237ml bottle PO SCH (17:00)
[2020-01-20 18:00] VITALS: BP 116/86
--- NOTE | 2020-01-20 18:27 | NUR ---
Problems reprioritized. Patient report given, questions answered & plan of care reviewed with MAVIS Mitchell/MAVIS Marmolejo. Informed nurses that doctors are monitoring kidney function to make sure they are trending down, then discharge home.
--- NOTE | 2020-01-20 18:39 | NUR ---
Patient in room PCU 3012. I have received report from Calli GAMBLE and had the opportunity to ask questions and assume patient care.
--- NOTE | 2020-01-20 18:39 | NUR ---
Patient in room PCU 3012. I have received report from Calli GAMBLE and had the opportunity to ask questions and assume patient care.
[2020-01-20] MEDS: normal saline 1000ml 1,000 ML IV SCH (20:16)
[2020-01-20 22:00] VITALS: BP 127/61
[2020-01-21 02:00] VITALS: BP 131/86
[2020-01-21] MEDS: levalbuterol 0.63mg/3ml nebule IH SCH ×2 (03:09→09:16)
--- NOTE | 2020-01-21 05:58 | NUR ---
[place] documentation: I have reviewed and agree with all interventions, assessments performed and documented by Conchita GAMBLE. [place] Medication Administration: For this medication-pass time frame, all medication were reviewed, dispensed, administered and documented per hospital policy by Conchita GAMBLE.
[2020-01-21 06:00] VITALS: BP 144/97
--- NOTE | 2020-01-21 06:13 | NUR ---
Problems reprioritized. Patient report given, questions answered & plan of care reviewed with Calli GAMBLE.
--- NOTE | 2020-01-21 06:13 | NUR ---
Problems reprioritized. Patient report given, questions answered & plan of care reviewed with Calli GAMBLE.
--- NOTE | 2020-01-21 06:57 | NUR ---
Patient in room PCU 3012. I have received report from MAVIS Mitchell and had the opportunity to ask questions and assume patient care.
[2020-01-21] MEDS: K and/or MAG REPLACEMENT MC SCH (08:00)
[2020-01-21] MEDS: CefTRIAXone/D5W-Rocephin 1gm 50 ML IV SCH (08:22)
[2020-01-21] MEDS: lactobacillus rhamnosus 10,000 MMU CELLS/CAPSULE PO SCH (08:30)
[2020-01-21] MEDS: famotidine 20mg tablet PO SCH (08:30)
[2020-01-21] MEDS: azithromycin 250mg tablet PO SCH (08:30)
[2020-01-21] MEDS: atorvastatin 10mg tablet PO SCH (08:30)
[2020-01-21] MEDS: carVEDilol 3.125mg tablet PO SCH (08:31)
[2020-01-21] MEDS: lactulose 20gm/30ml cup PO SCH (08:31)
[2020-01-21] MEDS: thiamine 100mg tablet PO SCH (08:31)
[2020-01-21] MEDS: folic acid 1mg tablet PO SCH (08:31)
[2020-01-21 09:13] LABS: BASOPHILS % (AUTO) 0.6 % (0-1); EOSINOPHILS # (AUTO) 0.2 X10'3 (0-0.9); EOSINOPHILS % (AUTO) 3.4 % (0-6); HEMOGLOBIN 9.1 g/dl (14.0-17.9); LYMPHOCYTES # (AUTO) 0.9 X10'3 (1.1-4.8); LYMPHOCYTES % (AUTO) 15.7 % (21-51); MEAN CORPUSCULAR HEMOGLOBIN 35.5 PG (27.0-31.0); MEAN CORPUSCULAR HGB CONC 32.5 g/dL (33.0-36.5); MEAN CORPUSCULAR VOLUME 109.3 FL (78-98); NEUTROPHILS # (AUTO) 3.8 X10'3 (1.8-7.7); NEUTROPHILS % (AUTO) 63.3 % (42-75); PLATELET COUNT 51 X10'3 (140-440); RED BLOOD COUNT 2.56 X10'6 (4.70-6.10); RED CELL DISTRIBUTION WIDTH 21.6 % (11.5-14.5)
[2020-01-21 09:16] LABS: ALBUMIN 1.9 G/DL (3.4-5.0); ANION GAP 5 (8-16); BLOOD UREA NITROGEN 34 MG/DL (7-18); BUN/CREATININE RATIO 17.1 (5.4-32.0); CALCIUM 8.4 MG/DL (8.5-10.1); CHLORIDE 112 MMOL/L (99-107); CREATININE 1.99 MG/DL (0.60-1.10); GLUCOSE 108 MG/DL (70-104); POTASSIUM 5.1 MMOL/L (3.5-5.1); SODIUM 143 MMOL/L (135-145); TOTAL CARBON DIOXIDE 25.8 MMOL/L (24-32); eGFR 33 ML/MIN
[2020-01-21] MEDS ORDERED: FURO-149 PO (10:51)
[2020-01-21 11:00] VITALS: BP 129/90
[2020-01-21 11:21] LABS: NUCLEATED RED BLOOD CELLS 1 /100WBC (0-0); TOTAL CELLS COUNTED 100
[2020-01-21 11:22] LABS: ANISOCYTOSIS 3+; PLATELET ESTIMATE DECREASED; POLYCHROMASIA 1+
[2020-01-21 11:23] LABS: LARGE PLATELETS FEW
--- NOTE | 2020-01-21 13:45 | NUR ---
Patient stable for discharge per MD orders. Instructions were reviewed with patient and . All belongings were collected and sent with patient. PIV discontinued, cannula intact. Tele monitor discontinued, wireless telegrapher notified. Paper [facility], [facility]ed prescription to [place] [facility]. Patient wheeled to [facility], and went home with in personal vehicle.
[2020-01-21 17:33] LABS: A/G RATIO 0.6 (0.7-1.7); ALBUMIN 2.1 g/dL (2.9-4.4); BETA GLOBULIN 0.9 g/dL (0.7-1.3); GAMMA GLOBULIN 2.1 g/dL (0.4-1.8); GLOBULIN, TOTAL 3.6 g/dL (2.2-3.9); M-SPIKE Not Observed g/dL (Not Observed); PROTEIN, TOTAL, SERUM 5.7 g/dL (6.0-8.5)
[2020-01-23 13:12] LABS: ALBUMIN, UR Note: % (.); PROTEIN,TOTAL,URINE 25.3 mg/dL (Not Estab.)
[2020-01-24] MEDS ORDERED: TRAM50TA2 PO (10:26)
[2020-01-24] MEDS ORDERED: CARV-50 PO (13:09)
[2020-01-24] MEDS ORDERED: FURO-150 PO (13:10)
== END 2020-01-21 13:45 | disposition home or self-care (01) | DRG 308 ==
LOC: ER 12:10 → ED HOLD 18:13 → PCU 3S 20:05
PROVIDERS: ADMIT Internal Medicine; ATTEND Internal Medicine
DX: I48.91 Unspecified atrial fibrillation (principal); N17.0 Acute kidney failure with tubular necrosis; J44.1 Chronic obstructive pulmonary disease with (acute) exacerbation; J44.0 Chronic obstructive pulmonary disease with (acute) lower respiratory infection; I25.10 Atherosclerotic heart disease of native coronary artery without angina pectoris; D69.6 Thrombocytopenia, unspecified; F17.210 Nicotine dependence, cigarettes, uncomplicated; F10.10 Alcohol abuse, uncomplicated; D69.59 Other secondary thrombocytopenia; E78.5 Hyperlipidemia, unspecified; K74.60 Unspecified cirrhosis of liver; I12.9 Hypertensive chronic kidney disease with stage 1 through stage 4 chronic kidney disease, or unspecified chronic kidney disease; N18.9 Chronic kidney disease, unspecified; B18.2 Chronic viral hepatitis C; I25.2 Old myocardial infarction; Z87.11 Personal history of peptic ulcer disease; Z87.820 Personal history of traumatic brain injury; Z98.52 Vasectomy status; Z79.899 Other long term (current) drug therapy; Z79.82 Long term (current) use of aspirin
CPT/HCPCS: 36415; 71045; 76775; 80048; 80053; 82570; 82595; 82948; 83605; 83735; 84145; 84155; 84156; 84165; 84166; 84300; 84484; 85025; 85651; 86160; 87081; 87207; 93005; 94640; 94667; 94668; 94760; 99285; G0378; J0696; J3490; J7030; J7614

== ENCOUNTER → 2020-01-23 | Emergency (ER) | payer OTHER, MEDICARE ==
[~2020-01-23] VITALS: Ht 170.2 cm; Wt 67.0 kg
[~2020-01-23] MED LIST changes: +ASPI-611 PO; -ATOR20TA66 PO; -BETA1TAB19 PO; +CARV-50 PO; -DIPH25CA83 PO; +FURO-149 PO; +FURO-150 PO; -FURO40TA4 PO; +ISOS30TA6 PO; +LACT10SO PO; -LACT10SO57 PO; +LIDO700A32 TOP; -POTA10TA19 PO; +PRAV10TA39 PO; -PROP10TA10 PO; -SPIR25TA5 PO; +TRAM50TA2 PO; +normal saline 1000ML IV soln IVB ONE
--- NOTE | 2020-01-23 06:46 | NUR ---
Dr. Smalls at bedside.
[2020-01-23 07:23] LABS: BASOPHILS % (AUTO) 0.5 % (0-1); EOSINOPHILS # (AUTO) 0.2 X10'3 (0-0.9); EOSINOPHILS % (AUTO) 2.9 % (0-6); HEMOGLOBIN 8.5 g/dl (14.0-17.9); LYMPHOCYTES # (AUTO) 1.1 X10'3 (1.1-4.8); LYMPHOCYTES % (AUTO) 15.6 % (21-51); MEAN CORPUSCULAR HEMOGLOBIN 35.4 PG (27.0-31.0); MEAN CORPUSCULAR HGB CONC 32.7 g/dL (33.0-36.5); MEAN CORPUSCULAR VOLUME 108.4 FL (78-98); MEAN PLATELET VOLUME 9.5 FL (7.4-10.4); MONOCYTES # (AUTO) 1.4 X10'3 (0-0.9); MONOCYTES % (AUTO) 19.5 % (2-12); NEUTROPHILS # (AUTO) 4.4 X10'3 (1.8-7.7); NEUTROPHILS % (AUTO) 61.5 % (42-75); PLATELET COUNT 58 X10'3 (140-440); RED CELL DISTRIBUTION WIDTH 20.9 % (11.5-14.5); WHITE BLOOD COUNT 7.2 X10'3 (4.5-11.0)
[2020-01-23 07:36] LABS: ALANINE AMINOTRANSFERASE 25 U/L (12-78); ALBUMIN 1.8 G/DL (3.4-5.0); ALBUMIN/GLOBULIN RATIO 0.4 (1.1-1.5); ALKALINE PHOSPHATASE 84 IU/L (46-116); ANION GAP 4 (8-16); ASPARTATE AMINO TRANSFERASE 55 U/L (10-37); BILIRUBIN,TOTAL 1.4 MG/DL (0.1-1.0); BLOOD UREA NITROGEN 30 MG/DL (7-18); BUN/CREATININE RATIO 16.7 (5.4-32.0); CALCIUM 8.4 MG/DL (8.5-10.1); CHLORIDE 109 MMOL/L (99-107); GLUCOSE 103 MG/DL (70-104); POTASSIUM 5.3 MMOL/L (3.5-5.1); SODIUM 140 MMOL/L (135-145); TOTAL CARBON DIOXIDE 26.9 MMOL/L (24-32); TOTAL PROTEIN 6.1 G/DL (6.4-8.2); eGFR 37 ML/MIN
[2020-01-23 07:40] LABS: CLARITY,URINE CLEAR (Clear); COLOR,URINE YELLOW (Yellow); GLUCOSE, URINE NEGATIVE (Neg); KETONES,URINE NEGATIVE (Neg); LEUKOCYTE ESTERASE ,URINE NEGATIVE (Neg); NITRITES, URINE NEGATIVE (Neg); OCCULT BLOOD,URINE SMALL (Neg); PH,URINE 5.5 (4.8-8.0); PROTEIN,URINE NEGATIVE (Neg); UROBILINOGEN,URINE 0.2 E.U/dL (0.2-1.0)
[2020-01-23 07:47] LABS: BACTERIA,URINE NONE SEEN /HPF (Neg); MUCUS STRANDS NONE SEEN /LPF (Neg); RBC,URINE 0-2 /HPF (0-2); SQUAMOUS EPITHELIAL CELL,UR FEW /LPF (FEW); UA COLLECTION TYPE STRAIGHT CATH; WBC,URINE NONE SEEN /HPF (0-4)
[2020-01-23 08:04] LABS: MAGNESIUM 1.9 MG/DL (1.5-2.4); PHOSPHORUS 2.8 MG/DL (2.3-4.5)
--- NOTE | 2020-01-23 10:22 | NUR ---
Spouse concern about patient being discharge.Paged CM to contact .
--- NOTE | 2020-01-23 10:23 | NUR ---
Per spouse she is "unable to take care of him",RN explained that RN will see patient upon dc,spouse then said "that's not going to work",paged Cm.
--- NOTE | 2020-01-23 11:02 | NUR ---
paged SW/inocencia.
--- NOTE | 2020-01-23 11:09 | NUR ---
SPOKE TO CHAPO SHUKLA,TOLD HER ABOUT 'S CONCERN,SAID SHE WILL CALL HER.
--- NOTE | 2020-01-23 11:15 | NUR ---
PER CHAPO,GIL/ WILL BE HERE IN AN HOUR TO TRANSPORT PATIENT HOME.
[2020-01-23 12:08] VITALS: BP 112/65
== END | disposition home or self-care (01) ==
LOC: ER 06:35
DX: R53.1 Weakness (principal); K74.69 Other cirrhosis of liver; E86.0 Dehydration; R06.02 Shortness of breath; I48.91 Unspecified atrial fibrillation; I10 Essential (primary) hypertension; I25.2 Old myocardial infarction; F17.210 Nicotine dependence, cigarettes, uncomplicated; F10.10 Alcohol abuse, uncomplicated; Z86.19 Personal history of other infectious and parasitic diseases; Z98.890 Other specified postprocedural states; Z79.82 Long term (current) use of aspirin; Z79.899 Other long term (current) drug therapy; Y90.9 Presence of alcohol in blood, level not specified
CPT/HCPCS: 36415; 71045; 80053; 81001; 83735; 84100; 84145; 84484; 85025; 93005; 99285

== ENCOUNTER 2020-03-14 01:09 | Emergency (ER) | payer OTHER, MEDICARE ==
[~2020-03-14] VITALS: Ht 170.2 cm; Wt 65.0 kg
[~2020-03-14 01:09] MED LIST changes: -ASPI-611 PO; +ASPI81TA52 PO; +CIPR-259 PO; -FURO-149 PO; -normal saline 1000ML IV soln IVB ONE
[2020-03-14 01:53] VITALS: BP 138/94
[2020-03-14 01:59] LABS: BASOPHILS # (AUTO) 0.1 X10'3 (0-0.2); BASOPHILS % (AUTO) 0.9 % (0-1); EOSINOPHILS # (AUTO) 0.1 X10'3 (0-0.9); EOSINOPHILS % (AUTO) 2.4 % (0-6); HEMATOCRIT 24.2 % (42.0-52.0); LYMPHOCYTES # (AUTO) 1.6 X10'3 (1.1-4.8); LYMPHOCYTES % (AUTO) 26.6 % (21-51); MEAN CORPUSCULAR HGB CONC 33.2 g/dL (33.0-36.5); MEAN CORPUSCULAR VOLUME 102.6 FL (78-98); MEAN PLATELET VOLUME 9.2 FL (7.4-10.4); MONOCYTES # (AUTO) 0.7 X10'3 (0-0.9); MONOCYTES % (AUTO) 11.5 % (2-12); NEUTROPHILS # (AUTO) 3.5 X10'3 (1.8-7.7); NEUTROPHILS % (AUTO) 58.6 % (42-75); PLATELET COUNT 86 X10'3 (140-440); RED BLOOD COUNT 2.36 X10'6 (4.70-6.10); RED CELL DISTRIBUTION WIDTH 16.9 % (11.5-14.5); WHITE BLOOD COUNT 5.9 X10'3 (4.5-11.0)
[2020-03-14 02:18] LABS: ALANINE AMINOTRANSFERASE 19 U/L (12-78); ALBUMIN 1.8 G/DL (3.4-5.0); ALBUMIN/GLOBULIN RATIO 0.3 (1.1-1.5); ALKALINE PHOSPHATASE 87 IU/L (46-116); ANION GAP -1 (8-16); ASPARTATE AMINO TRANSFERASE 39 U/L (10-37); BILIRUBIN,TOTAL 1.1 MG/DL (0.1-1.0); BLOOD UREA NITROGEN 20 MG/DL (7-18); BUN/CREATININE RATIO 11.8 (5.4-32.0); CALCIUM 9.2 MG/DL (8.5-10.1); CHLORIDE 106 MMOL/L (99-107); GLUCOSE 117 MG/DL (70-104); MAGNESIUM 1.3 MG/DL (1.5-2.4); POTASSIUM 4.9 MMOL/L (3.5-5.1); SODIUM 145 MMOL/L (135-145); TOTAL CARBON DIOXIDE 39.9 MMOL/L (24-32); TOTAL PROTEIN 7.3 G/DL (6.4-8.2); eGFR 40 ML/MIN
[2020-03-14] MEDS ORDERED: FURO-150 PO (02:34)
[2020-03-14] MEDS ORDERED: furosemide 20MG tablet PO ONE (02:35)
--- NOTE | 2020-03-14 02:46 | NUR ---
CARLOZ CARGO CALLED FOR TRANSPORT BACK TO [facility]
== END 2020-03-14 03:41 | disposition home or self-care (01) ==
LOC: ER 01:10
DX: S01.81XA Laceration without foreign body of other part of head, initial encounter (principal); I48.91 Unspecified atrial fibrillation; I10 Essential (primary) hypertension; I25.2 Old myocardial infarction; Z86.19 Personal history of other infectious and parasitic diseases; F10.10 Alcohol abuse, uncomplicated; Z98.890 Other specified postprocedural states; Z88.5 Allergy status to narcotic agent; Z79.82 Long term (current) use of aspirin; Z79.899 Other long term (current) drug therapy; W19.XXXA Unspecified fall, initial encounter; Y93.89 Activity, other specified; Y92.89 Other specified places as the place of occurrence of the external cause; Y99.8 Other external cause status
CPT/HCPCS: 12002; 36415; 70450; 71045; 72125; 80053; 83735; 83880; 84484; 85025; 93005; 99285